=== PATIENT | female | born 1990 | race American Indian/Alaskan Native ===

== ENCOUNTER 2016-11-17 18:51 | Emergency (ER) | payer OTHER ==
[2016-11-18] MEDS: NORCO 7.5/325 PO ONE (02:52)
[2016-11-18] MEDS: FLEXERIL PO ONE (02:52)
[2016-11-18] MEDS: TORADOL IM ONE (02:58)
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
[2016-11-18 04:38] VITALS: BP 103/63
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
== END 2016-11-18 04:42 | disposition home or self-care (01) ==
LOC: ED 18:51
DX: M54.5 Low back pain (principal); M25.512 Pain in left shoulder; V49.59XA Passenger injured in collision with other motor vehicles in traffic accident, initial encounter; Y93.9 Activity, unspecified; Y92.9 Unspecified place or not applicable; Y99.9 Unspecified external cause status
CPT/HCPCS: 72100; 73030; 81025; 96372; 99283; J1885